=== PATIENT | male | born 1985 | race Caucasian/White ===

== ENCOUNTER 2024-01-22 17:05 | Emergency (ER) | payer SELFPAY ==
[2024-01-22] MEDS: Cephalexin 500 MG Cap PO ONE (19:27)
[2024-01-22 19:33] VITALS: BP 124/85; PULSE 77
== END 2024-01-22 19:33 | disposition home or self-care (01) ==
LOC: FB.ED 17:05
DX: S50.02XA Contusion of left elbow, initial encounter (principal); M70.22 Olecranon bursitis, left elbow; F17.210 Nicotine dependence, cigarettes, uncomplicated; Z91.040 Latex allergy status; Z91.030 Bee allergy status; Z88.5 Allergy status to narcotic agent; W01.0XXA Fall on same level from slipping, tripping and stumbling without subsequent striking against object, initial encounter
CPT/HCPCS: 73080; 99283; A9270

== ENCOUNTER 2024-07-19 20:30 | Emergency (ER) | payer SELFPAY ==
[2024-07-19] MEDS: Diphtheria,Pertussis(Acell),Tetanus Vaccine 0.5 ML Syringe IM ONE (21:10)
[2024-07-19] MEDS: Amoxicillin/Clavulanate K 875-125 MG Tab PO STA (21:10)
[2024-07-19 23:40] VITALS: BP 115/91; PULSE 77
== END 2024-07-19 21:42 | disposition home or self-care (01) ==
LOC: FB.ED 20:30
DX: S61.452A Open bite of left hand, initial encounter (principal); L03.114 Cellulitis of left upper limb; Z91.040 Latex allergy status; Z91.030 Bee allergy status; Z88.5 Allergy status to narcotic agent; Z79.899 Other long term (current) drug therapy; W55.01XA Bitten by cat, initial encounter
CPT/HCPCS: 90471; 90715; 99283; 99283-25; A9270-GY

== ENCOUNTER 2024-11-19 23:40 | Emergency (ER) | payer SELFPAY ==
[2024-11-19 23:52] VITALS: BP 153/106; PULSE 74
[2024-11-20] MEDS: Ketorolac 30 MG/ML SDV IM ONE (00:06)
[2024-11-20] MEDS: Amoxicillin/Clavulanate K 875-125 MG Tab PO ONE (00:07)
== END 2024-11-20 00:10 | disposition home or self-care (01) ==
LOC: FB.ED 23:40
DX: K02.9 Dental caries, unspecified (principal); Z88.5 Allergy status to narcotic agent; Z91.040 Latex allergy status; Z91.030 Bee allergy status; Z79.899 Other long term (current) drug therapy
CPT/HCPCS: 96372; 99282; A9270; J1885; 99283